=== PATIENT | female | born 1995 | race Caucasian/White ===

== ENCOUNTER → 2020-04-13 | Outpatient (CLI) | payer OTHER ==
[~2020-04-13] MED LIST: BACTRIM DS TAB1 EACH PO; BENTYL 10 MG CA10 M1 PO; BIOTIN1 MG PO; CARAFATE 1 GM TA1 G1 PO; CRANBERRY250 MG PO; DIETHYLPROPION75 MG PO; ELIMITE60 GM TP; EXCEDRIN MIGRA1 EAC1 PO; HYDROCODON-ACE1 EAC7 PO; HYDROXYZINE HCL25 M1 PO; IBUPROFEN 800800 M1 PO; LEXAPRO 10 MG T10 MG PO; MACROBID 100 M100 M1 PO; MEDROLDOSEPACK PO; MIRALAX17 GM PO; OMEPRAZOLE 20 M20 M1 PO; OMEPRAZOLE40 MG; PHENAZOPYRIDIN200 M2 PO; RESTORIL15 MG PO; STOOL SOFTENER100 MG PO; TOPAMAX 25 MG T25 M1; TRAMADOL 50 MG50 MG PO; TRINESSA LO TA1 EACH PO; WAL-ZYR10 M1 PO; WOMEN MULTIVIT1 EACH PO; ZOFRAN ODT4 MG PO; ZYRTEC10 M5 PO
== END ==
LOC: LAB 08:30
PROVIDERS: ATTEND Specialist
DX: Z20.822 Contact with and (suspected) exposure to COVID-19 (principal)